=== PATIENT | female | born 1990 | race Caucasian/White ===

== ENCOUNTER 2021-09-26 23:32 | Emergency (ER) | payer MEDICAID, OTHER ==
[~2021-09-26] VITALS: Ht 160 cm; Wt 60.0 kg
[2021-09-27] MEDS ORDERED: benzonatate 100mg capsule PO ONE (01:35)
[2021-09-27] MEDS ORDERED: BENZ-38 PO (02:04)
[2021-09-27] MEDS ORDERED: ALBU8HFA PO (02:04)
[2021-09-27 02:10] VITALS: BP 111/62
== END 2021-09-27 02:12 | disposition home or self-care (01) ==
LOC: ER 23:35
DX: J11.1 Influenza due to unidentified influenza virus with other respiratory manifestations (principal); R05.9 Cough, unspecified; R50.9 Fever, unspecified; R07.89 Other chest pain; Z79.899 Other long term (current) drug therapy
CPT/HCPCS: 71045; 87502; 87503; 99284